=== PATIENT | male | born 1985 | race Caucasian/White ===

== ENCOUNTER 2016-10-11 17:31 | Emergency (ER) | payer OTHER ==
[2016-10-11 17:33] VITALS: BMI 20.5
[2016-10-11 17:49] VITALS: TEMP 98.2
--- NOTE | 2016-10-11 18:01 | EDPRACDOC ---
- General Information Chief Complaint: Toothache Stated Complaint: LT LOWER DENTAL PAIN/CP HEAVY & SHARP Time Seen by Provider: 10/11/16 17:52 Information Source: Patient Home Medications: Home Medications Amoxicillin Trihydrate [Amoxicillin] 500 mg PO TID #21 tab 10/11/16 Hydrocodone Bit/Acetaminophen [Lortab 5/325] 1 tab PO Q4-6H PRN #15 tab Allergies/Adverse Reactions: Allergies Allergy/AdvReac Type Severity Reaction Status Date / Time No Known Allergies Allergy Verified 10/11/16 17:53 - History of Present Illness Onset: 1 week HPI: Pt c/o L upper and lower tooth ache after braking tooth while eating. C/o chest pain intermittent with congestion and cough. Denies fever, earache, sore throat , abd pain, n/v, changes in bowel or bladder, rash. Pain Severity: Reports: Moderate Relevant History of: Reports: None Modifying Factors: improves with: Cold Associated Signs and Symptoms: Reports: None ED Past Medical History - History Reviewed Yes Nurses notes reviewed and agree except as marked - Patient Medical History Psychological History: Reports: Substance Use Disorder (NARCOTIC ABUSE ON SUBXONE). Denies: Depression Systemic History: Denies: Cancer - Social Medical History Smoking Status: Heavy tobacco smoker (5 or more cigarettes/day or daily pipe/ cigar) Social History: Reports: Substance Use Disorder (NARCOTIC ABUSE ON SUBXONE) ETOH: None EDM Review of Systems - Review of Systems Constitutional: No Symptoms Reported. negative: Fever, Chills, Weakness, Fatigue, Loss of Appetite Ears: No Symptoms Reported. negative: Pain, Hearing Loss, Drainage, Ear Pulling Throat: No Symptoms Reported. negative: Pain, Swelling Nose: Congestion Mouth: Tooth Pain Respiratory: Cough. negative: No Symptoms Reported, Barky Cough, Brassy Cough, Hemoptysis, Shortness of Breath, Wheezing Cardiovascular: Chest Pain Gastrointestinal: No Symptoms Reported. negative: Pain, Constipation, Nausea, Vomiting, Diarrhea, Melena, Formula Intolerance Genitourinary: No Symptoms Reported. negative: Dysuria, Hematuria, Frequency, Discharge, Bleeding, Testicular Pain, Neurological: No Symptoms Reported. negative: Headache, Dizziness, Seizure, Numbness, Weakness, Speech Difficulty, Gait Difficulty Musculoskeletal: No Symptoms Reported. negative: Neck, Chestwall, Ribs, Back, Shoulder, Arm, Elbow, Forearm, Wrist, Hand, Pelvis, Hip, Femur, Knee, Leg, Ankle , Foot Integumentary: No Symptoms Reported. negative: Itching, Rash, Bruising, Wound Allergic/Immunologic: No Symptoms Reported. negative: Hives, Itching Hematologic: No Symptoms Reported. negative: Lymphadenopathy, Easy Bruising, Easy Bleeding Psychiatric: No Symptoms Reported. negative: Anxiety, Depression, Hallucinations, Insomnia, Suicidal - Physical Exam Constitutional: No apparent distress, Alert Oriented to: Time, Person, Place Last recorded Vital Signs: Last Vital Signs Temp 98.2 F 10/11/16 17:47 Pulse 97 10/11/16 17:47 Resp 20 10/11/16 17:47 BP 168/77 10/11/16 17:47 Pulse Ox 97 10/11/16 17:47 Oxygen Pulse Oxygen Saturation 97 O2 Device Room Air Oxygen Flow Rate Fraction of Inspired Oxygen ( FIO2) - HEENT Head: Normal ( normocephalic) Eye Exam: Normal (PERRL, EOMI, Sclera white) Oropharynx: Normal (Pharynx:Moist without exudate,Gums-no swelling) Tympanic Membrane: Normal ENT EAC: Normal TMJ: Normal Nose: No Symptoms Reported (septum midline) Neck: Normal (FROM, trachea at midline) - Respiratory/Cardiovascular Respiratory: Normal - CTA (BBS clear to auscultation without adventitious sounds ) Cardiovascular: Normal (RRR without murmur, gallop or rub) - Musculoskeletal Back: Normal (Non-Tender) Extremities: Normal (Normal tone, Pulses 2+ No cyanosis or edema, FROM) - Integumentary Skin: Normal, Warm, Dry Lymphatics: Normal (no adenopathy) - Neurologic Memory Impaired: Normal Motor Function: Normal (Normal tone, Pulses 2+ No cyanosis or edema, FROM) Mood Description: Normal Perception: Normal ED Tooth Problem Exam - HEENT Face: Normal Teeth: Left: Molar-2 Lower (caries) Gingiva: Normal Palate: Normal Mouth Range of Motion: Normal Sinuses: Normal Oropharynx: Normal Neck: Normal - Differential Diagnosis Alveolar Fracture, Periapical Abscess, Periodontal Abscess, Other (bronchitis, costochrondritis) - EKG EKG #1 EKG Time: 18:20 Rate: bpm: 77 [place]: Normal Rhythm: NSR Block: None ST: Normal - Diagnostic Imaging Chest Image interpreted by: Radiologist IMPRESSION: No active cardiopulmonary disease. Decision Time to Discharge: 18:41 - Departure Disposition: Home Condition: Good Final Diagnosis: Dental abscess (peridontal), Dental caries, Bronchitis Instructions: Dental Abscess (ED), Dental Caries (ED) Education/Counseling Given To: Patient Education/Counseling Given Regarding: Diagnosis, Treatment, Follow Up Referrals: Stephanie Mckeon DO [Primary Care Provider] - One Week Prescriptions: New Amoxicillin Trihydrate [Amoxicillin] 500 mg PO TID #21 tab Hydrocodone Bit/Acetaminophen [Lortab 5/325] 1 tab PO Q4-6H PRN #15 tab PRN Reason: Pain Additional Instructions: You must follow up with a dentist as soon as possible, you may contact the [facility] at [phone] for assistance.
--- NOTE | 2016-10-11 18:37 | DIRPT ---
CLINICAL DATA: Chest pain and cough for 3 days. EXAM: CHEST 2 VIEW COMPARISON: None. FINDINGS: The heart size and mediastinal contours are within normal limits. Both lungs are clear. The visualized skeletal structures are unremarkable. IMPRESSION: No active cardiopulmonary disease. Electronically Signed By: Manny Baxter M.D. On: 10/11/2016 18:34
[2016-10-11 19:09] VITALS: BP 150/68; PULSE 82
== END 2016-10-11 19:00 | disposition home or self-care (01) ==
LOC: EDMC 17:31
DX: K04.7 Periapical abscess without sinus (principal); K02.9 Dental caries, unspecified; J40 Bronchitis, not specified as acute or chronic
CPT/HCPCS: 71020; 99282